=== PATIENT | female | born 1995 | race Caucasian/White ===

== ENCOUNTER 2017-01-14 14:09 | Emergency (ER) | payer OTHER ==
[~2017-01-14] VITALS: Ht 154.9 cm; Wt 73.9 kg
[2017-01-14] MEDS ORDERED: NOVOLOG FLEX100 U/ML SC (14:26)
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
[2017-01-14 15:03] VITALS: BP 140/80
== END 2017-01-14 15:04 | disposition home or self-care (01) ==
LOC: UTC 14:09
DX: S00.33XA Contusion of nose, initial encounter (principal); W50.0XXA Accidental hit or strike by another person, initial encounter; Y93.F2 Activity, caregiving, lifting; Y92.69 Other specified industrial and construction area as the place of occurrence of the external cause; Y99.0 Civilian activity done for income or pay; Z88.0 Allergy status to penicillin; Z88.1 Allergy status to other antibiotic agents; E11.9 Type 2 diabetes mellitus without complications; Z79.4 Long term (current) use of insulin